=== PATIENT | female | born 1990 | race Caucasian/White ===

== ENCOUNTER → 2023-11-08 | Day surgery (SDC) | payer OTHER ==
[~2023-11-08] VITALS: Ht 160 cm; Wt 59.0 kg
[~2023-11-08] MED LIST: BARI1CAP PO; CALC250T PO; FERR325T19 PO; NS 1,000 ML IV ONE; PARO30TA65 PO
== END | disposition home or self-care (01) ==
LOC: M OPP 11:05
PROVIDERS: ATTEND Surgery
DX: D50.9 Iron deficiency anemia, unspecified (principal); Z53.09 Procedure and treatment not carried out because of other contraindication

== ENCOUNTER 2023-12-10 12:11 | Outpatient (CLI) | payer OTHER ==
[~2023-12-10] VITALS: Ht 160 cm; Wt 58.0 kg
[~2023-12-10 12:11] MED LIST changes: +ALBUTEROL SULFATE 2.5MG/0.5ML INH NEB SOLN INH PRN; +EPINEPHrine INJ 1 MG/ML 1ML AMP IM PRN; -NS 1,000 ML IV ONE; +NS 1,000 ML IV SCH; +diphenhydrAMINE 50MG/ML VIAL IV PRN; +methylPREDNISolone 125MG 2ML VIAL IV PRN
[2023-12-10 12:40] VITALS: BP 131/77; O2SAT 100
[2023-12-10] MEDS ORDERED: IRON SUCROSE 300 MG in NS 250 ML IV ONE (13:00)
[2023-12-10] MEDS: IRON SUCROSE 300 MG in NS 250 ML IV ONE (13:13)
[2023-12-10 15:00] VITALS: BP 109/63; O2SAT 98
== END 2023-12-10 15:00 ==
LOC: M INFU 12:11
PROVIDERS: ATTEND Internal Medicine Hematology
DX: D50.9 Iron deficiency anemia, unspecified (principal)
CPT/HCPCS: 96365; 96366; J1756

== ENCOUNTER 2023-12-17 15:00 | Outpatient (CLI) | payer OTHER ==
[~2023-12-17] VITALS: Ht 160 cm; Wt 54.5 kg
[2023-12-17 15:00] VITALS: BP 126/58; O2SAT 99
[2023-12-17] MEDS: IRON SUCROSE 300 MG in NS 250 ML IV ONE (15:18)
== END 2023-12-17 16:55 ==
LOC: M INFU 15:00
PROVIDERS: ATTEND Internal Medicine Hematology
DX: D50.9 Iron deficiency anemia, unspecified (principal)
CPT/HCPCS: 96365; 96366; J1756

== ENCOUNTER 2023-12-24 15:45 | Outpatient (CLI) | payer OTHER ==
[~2023-12-24] VITALS: Ht 160 cm; Wt 58.0 kg
[2023-12-24 15:45] VITALS: BP 110/59; O2SAT 10
[~2023-12-24 15:45] MED LIST changes: -NS 1,000 ML IV SCH
[2023-12-24] MEDS: IRON SUCROSE 300 MG in NS 250 ML OVER 90 MIN. IV ONE (15:55)
[2023-12-24 17:35] VITALS: BP 100/54; O2SAT 98
== END 2023-12-24 17:35 ==
LOC: M INFU 15:45
PROVIDERS: ATTEND Internal Medicine Hematology
DX: D50.9 Iron deficiency anemia, unspecified (principal)
CPT/HCPCS: 96365; J1756

== ENCOUNTER → 2024-02-20 | Outpatient (CLI) | payer OTHER ==
[~2024-02-20] MED LIST changes: -ALBUTEROL SULFATE 2.5MG/0.5ML INH NEB SOLN INH PRN; -EPINEPHrine INJ 1 MG/ML 1ML AMP IM PRN; -diphenhydrAMINE 50MG/ML VIAL IV PRN; -methylPREDNISolone 125MG 2ML VIAL IV PRN
[2024-02-20 14:23] LABS: BASO # 0.1 10^3/uL (0.0-0.2); BASO % 0.9 % (0.0-1.0); EOS # 0.1 10^3/uL (0.0-0.5); EOS % 1.4 % (0.0-3.0); HEMATOCRIT 37.9 % (36.0-47.0); HEMOGLOBIN 12.5 g/dl (12.0-15.5); LYMPH # 1.7 10^3/uL (1.5-5.0); LYMPH % 31.1 % (24.0-44.0); MEAN CORPUSCULAR HEMOGLOBIN 30.9 pg (27.0-33.0); MEAN CORPUSCULAR VOLUME 93.6 fl (80.0-96.0); MONO # 0.3 10^3/uL (0.0-0.8); MONO % 6.1 % (2.0-8.0); NEUTROPHILS # 3.3 10^3/uL (1.5-8.5); NEUTROPHILS % 60.1 % (36.0-66.0); PLATELET COUNT, AUTOMATED 310 10^3/uL (150-450); RED BLOOD COUNT 4.05 10^6/uL (4.00-5.40); WHITE BLOOD COUNT 5.6 10^3/uL (4.0-10.0)
[2024-02-20 14:34] LABS: ERYTHROCYTE SEDIMENTATION RATE 3 mm/hr (0-20)
[2024-02-20 14:38] LABS: HEMOGLOBIN A1c 5.3 % (4.0-6.0)
[2024-02-20 14:54] LABS: ALBUMIN 4.3 G/DL (3.2-5.2); ALKALINE PHOSPHATASE 50 U/L (35-104); ALT/SGPT 24 U/L (7.0-40); AST/SGOT 19 U/L (<34); BILIRUBIN,TOTAL 0.4 MG/DL (0.3-1.2); BLOOD UREA NITROGEN 16 MG/DL (9-23); CARBON DIOXIDE LEVEL 31 MMOL/L (20-31); CHLORIDE LEVEL 102 MMOL/L (98-107); CREATININE FOR GFR 0.55 MG/DL (0.55-1.30); FOLATE 12.9 NG/ML (>5.4); FREE THYROXINE INDEX 1.6 % (1.3-4.8); GLOMERULAR FILTRATION RATE > 60.0 (>60); GLUCOSE, FASTING 91 MG/DL (60-100); IRON (FE) 184 UG/DL (50-170); POTASSIUM SERUM 4.4 MMOL/L (3.5-5.1); RHEUMATOID FACTOR QUANT < 3.5 IU/ML (<14); SODIUM LEVEL 141 MMOL/L (136-145); T UPTAKE 31.2 % (22.5-37.0); THYROID STIMULATING HORMONE 0.563 uIU/ML (0.55-4.78); TOTAL PROTEIN 7.6 G/DL (5.7-8.2)
[2024-02-20 14:55] LABS: FERRITIN 56.3 NG/ML (7.3-270.7)
[2024-02-20 14:56] LABS: VITAMIN B12 LEVEL 417 PG/ML (211-911)
[2024-02-21 09:32] LABS: T P ELECTROPHORESIS SO 7.6 g/dL (6.1-8.1)
[2024-02-21 14:47] LABS: ANA SCREEN, IFA NEGATIVE (NEGATIVE)
[2024-02-21 18:13] LABS: SSA SJOGRENS A <1.0 NEG AI (<1.0 NEG); SSB SJOGRENS B <1.0 NEG AI (<1.0 NEG)
== END ==
LOC: M LAB 12:56
PROVIDERS: ATTEND Psychiatry & Neurology Neurology
DX: R53.83 Other fatigue (principal); E61.1 Iron deficiency; E11.9 Type 2 diabetes mellitus without complications; E07.9 Disorder of thyroid, unspecified; M35.00 Sjogren syndrome, unspecified; Z11.9 Encounter for screening for infectious and parasitic diseases, unspecified

== ENCOUNTER → 2024-03-24 | Outpatient (CLI) | payer OTHER ==
[2024-03-24 12:48] LABS: BASO # 0.1 10^3/uL (0.0-0.2); EOS # 0.1 10^3/uL (0.0-0.5); EOS % 1.5 % (0.0-3.0); LYMPH # 1.7 10^3/uL (1.5-5.0); LYMPH % 31.9 % (24.0-44.0); MEAN CORPUSCULAR HEMOGLOBIN 31.1 pg (27.0-33.0); MEAN CORPUSCULAR HGB CONC 32.4 g/dl (32.0-36.5); MONO # 0.4 10^3/uL (0.0-0.8); MONO % 7.8 % (2.0-8.0); NEUTROPHILS % 57.6 % (36.0-66.0); PLATELET COUNT, AUTOMATED 289 10^3/uL (150-450); RED BLOOD COUNT 3.54 10^6/uL (4.00-5.40); WHITE BLOOD COUNT 5.3 10^3/uL (4.0-10.0)
[2024-03-24 12:56] LABS: INR 1.1; PARTIAL THROMBOPLASTIN TIME 26.8 SECONDS (24.8-34.2); PROTHROMBIN TIME 14.5 SECONDS (12.5-14.5)
[2024-03-24 13:32] LABS: FERRITIN 68.7 NG/ML (7.3-270.7)
[2024-03-24 14:27] LABS: FREE T4 0.86 NG/DL (0.89-1.76); THYROID STIMULATING HORMONE 0.576 uIU/ML (0.55-4.78)
== END ==
LOC: M PLALAB 10:15
PROVIDERS: ATTEND Internal Medicine Hematology
DX: D64.9 Anemia, unspecified (principal)